=== PATIENT | male | born 1975 | race Caucasian/White ===

== ENCOUNTER → 2017-12-21 | Outpatient (REF) | payer BC | LOC: M LAB REF 17:16 | DX: D23.4 Other benign neoplasm of skin of scalp and neck (principal) | CPT/HCPCS: 88305 ==

== ENCOUNTER → 2019-06-25 | Outpatient (REF) | payer BC ==
[2019-06-27 00:08] LABS: Lyme Disease IgG/IgM Antibodie <0.91 ISR (0.00-0.90); Lyme Disease IgM Ab Quantitati <0.80 index (0.00-0.79)
== END ==
LOC: M LAB REF 12:18
PROVIDERS: ATTEND Nurse Practitioner Adult Health
DX: R53.81 Other malaise (principal); R50.9 Fever, unspecified

== ENCOUNTER → 2022-02-24 | Outpatient (REF) ==
[2022-02-24 12:08] LABS: RSV AMPLIFICATION NEGATIVE (NEGATIVE)
== END ==
LOC: M EMP 09:39
PROVIDERS: ATTEND Family Medicine
DX: Z20.822 Contact with and (suspected) exposure to COVID-19 (principal)